=== PATIENT | male | born 1985 | race Caucasian/White ===

== ENCOUNTER 2023-04-21 00:43 | Emergency (ER) | payer MEDICAID ==
[~2023-04-21] VITALS: Ht 172.7 cm; Wt 102.1 kg
[2023-04-21 01:05] VITALS: BP_SYST 138; PULSE 90; RESP 19; TEMP 97.9; O2SAT 97
[2023-04-21] MEDS ORDERED: cefTRIAXone 1 GM in LIDOCAINE 1%, 20 ML MDV 2.1 ML IM ONE (01:30)
[2023-04-21] MEDS ORDERED: CEPH-548 PO (02:28)
[2023-04-21 02:31] VITALS: BP_SYST 134; PULSE 94; RESP 18; TEMP 99.5; O2SAT 97
== END 2023-04-21 02:31 | disposition home or self-care (01) ==
LOC: SED 00:43
DX: L73.8 Other specified follicular disorders (principal); R22.0 Localized swelling, mass and lump, head; Z79.899 Other long term (current) drug therapy
CPT/HCPCS: 99283; 96372; J0696; J2001